=== PATIENT | female | born 1975 | race Native Hawaiian/Other Pacific Islander ===

== ENCOUNTER 2020-06-14 12:36 | Emergency (ER) | payer OTHER ==
[~2020-06-14] VITALS: Ht 172.7 cm; Wt 134.3 kg
[2020-06-14 13:00] VITALS: TEMP 98.8
[2020-06-14 14:20] VITALS: BP 132/75
== END 2020-06-14 14:20 | disposition home or self-care (01) ==
LOC: ED 12:36
DX: K27.9 Peptic ulcer, site unspecified, unspecified as acute or chronic, without hemorrhage or perforation (principal); G43.909 Migraine, unspecified, not intractable, without status migrainosus; N30.80 Other cystitis without hematuria
CPT/HCPCS: 81000; 96372; 99283; J1200; J1885; J2405

== ENCOUNTER 2020-07-09 16:15 | Observation (INO) | payer OTHER ==
[~2020-07-09] VITALS: Ht 162.6 cm; Wt 132.3 kg
[2020-07-09 16:21] VITALS: BP 162/90; TEMP 97.9
[2020-07-09 16:42] LABS: PLATELET COUNT 124 K/uL (152-353)
[2020-07-09 16:50] LABS: POTASSIUM 3.8 mmol/L (3.6-5.2); SODIUM 141 mmol/L (136-145)
[2020-07-09 17:00] LABS: PARTIAL THROMBOPLASTIN TIME 22.5 SECONDS (24.5-33.6)
[2020-07-09] MEDS ORDERED: BUTRANS10 MCG/HR TD (17:57)
[2020-07-09] MEDS ORDERED: INTEGRA PO (17:58)
[2020-07-09] MEDS ORDERED: VRAYLAR1.5 MG PO (18:00)
[2020-07-09] MEDS ORDERED: TRAZODONE HYDR100 MG PO (18:00)
--- NOTE | 2020-07-09 18:00 | NUR ---
PATIENT BROUGHT VIA WHEELCHAIR TO ROOM 1113. ADMISSION COMPLETED. PATIENT C/O OF MERIDA SECONDARY TO NITROGLYCERIN PLACEMENT. WILL GIVEN PATIENT TYLENOL FOR PAIN. PATIENT HAS A 22G TO THE LAC THAT IS SALINE LOCKED AT THIS TIME.
[2020-07-09] MEDS ORDERED: SERTRALINE HYD100 MG PO (18:01)
[2020-07-09] MEDS ORDERED: TELMISARTAN20 MG PO (18:01)
[2020-07-09] MEDS ORDERED: OXCARBAZEPIN300 MG PO (18:02)
[2020-07-09] MEDS ORDERED: DEXILANT60 M1 PO (18:03)
[2020-07-09] MEDS ORDERED: GABA300C2 PO (18:04)
[2020-07-09] MEDS ORDERED: TOPAMAX200 MG PO (18:04)
[2020-07-09] MEDS ORDERED: KLOR-CON M1010 MEQ PO (18:05)
[2020-07-09] MEDS ORDERED: VITAMIN B12 PO (18:07)
[2020-07-09] MEDS ORDERED: RABEPRAZOLE SOD20 MG PO (18:08)
[2020-07-09] MEDS ORDERED: VITAMIN D2 PO (18:08)
[2020-07-09] MEDS ORDERED: SIMV20TA2 PO (18:09)
[2020-07-09] MEDS ORDERED: CLOPIDOGREL75 MG PO (18:09)
[2020-07-09] MEDS ORDERED: OMEP40CA PO (18:10)
[2020-07-09] MEDS ORDERED: ONDA4TAB3 PO (18:10)
[2020-07-09 19:29] VITALS: BP 144/80; TEMP 97.6; Ht 162.6 cm; Wt 132.3 kg
[2020-07-09 19:54] VITALS: BP 111/57; TEMP 98.1
--- NOTE | 2020-07-09 20:30 | NUR ---
PT COMPLAINS OF HEADACHE AND NAUSEA AT THIS TIME. PT IN A LOW FOWLERS POSITION WITH SIDE RAILS UP TIMES TWO AND BED IN LOWEST POSITION AND CALL LIGHT WITHIN REACH.
[2020-07-09 23:56] VITALS: BP 142/77; TEMP 98.2
[2020-07-10 03:51] VITALS: BP 119/64; TEMP 97.9
[2020-07-10 07:52] VITALS: BP 130/70; TEMP 98.1
--- NOTE | 2020-07-10 09:09 | NUR ---
OTBS 150- NOTIFIED0 VERBAL GIVEN TO ORDER HAIC.
--- NOTE | 2020-07-10 12:33 | NUR ---
PT VOMITING AFTER EATING PART OF HER LUNCH, REPORTS 7/10 CHEST PAIN, REPORTS FEELING ANXIOUS. RT IN TO DO STAT EKG. PT REFUSES NITRO, STATING IT GIVES HER A MERIDA.
--- NOTE | 2020-07-10 12:39 | NUR ---
DR. FRYE NOTIFIED OF CONDITION CHANGE. 4MG ZOFRAN ADMIN SIVP.
--- NOTE | 2020-07-10 12:54 | NUR ---
TO BEDSIDE. STAT TROP ORDERED PER DR. FRYE.
[2020-07-10] MEDS ORDERED: CLON0.5T36 PO (13:06)
--- NOTE | 2020-07-10 14:28 | NUR ---
DC INSTRUCTIONS EXPLAINED TO PT WHO VERBALIZED UNDERSTANDING. WRITTEN RX AND APPOINTMENT CARD GIVEN TO PT.
--- NOTE | 2020-07-10 14:40 | NUR ---
PT WHEELED TO EXIT FOR TRANSPORT HOME WITH FRIEND. ALL BELONGINGS SENT HOME WITH PT. PT LEFT FLOOR IN NAD.
== END 2020-07-10 14:40 | disposition home or self-care (01) ==
LOC: ED 16:15 → MED/SURG 17:19
PROVIDERS: Hospitalist; ADMIT Internal Medicine; ATTEND Internal Medicine
DX: R07.89 Other chest pain (principal); I25.10 Atherosclerotic heart disease of native coronary artery without angina pectoris; Z68.42 Body mass index [BMI] 45.0-49.9, adult; E66.01 Morbid (severe) obesity due to excess calories; Z71.3 Dietary counseling and surveillance; G40.802 Other epilepsy, not intractable, without status epilepticus
CPT/HCPCS: 80053; 82550; 83036; 83880; 84484; 85027; 85610; 85730; 87635; 93005; 94760; 96372; 96374; 96375; 99220; 99284; G0378; J1650; J2270; J2405; U0003